=== PATIENT | female | born 1950 | race American Indian/Alaskan Native ===

== ENCOUNTER 2020-03-23 09:20 | Day surgery (SDC) | payer MEDICARE, BC ==
[~2020-03-23] VITALS: Ht 167.6 cm; Wt 88.0 kg
[2020-03-23 11:16] VITALS: BP 135/73
[2020-03-23 11:21] VITALS: BP 135/73
[2020-03-23] MEDS ORDERED: SIMV-42 PO (12:02)
[2020-03-23] MEDS ORDERED: AMPH15TA2 PO (12:02)
[2020-03-23] MEDS ORDERED: BENA1TAB79 (12:05)
[2020-03-23] MEDS ORDERED: AMLO-94 PO (12:06)
[2020-03-23] MEDS ORDERED: THYR48.7 (12:08)
[2020-03-23] MEDS ORDERED: INSU100I31 (12:10)
== END 2020-03-23 12:00 | disposition home or self-care (01) ==
LOC: MED 3N 09:20 → U 09:20
PROVIDERS: ATTEND Internal Medicine
DX: Z45.2 Encounter for adjustment and management of vascular access device (principal)
CPT/HCPCS: 36573; 76937

== ENCOUNTER 2020-06-21 10:44 | Day surgery (SDC) | payer MEDICARE, BC ==
[2020-06-21] VITALS (12 sets, daily range): BP systolic 115–153; BP diastolic 56–80
[~2020-06-21] VITALS: Ht 167.6 cm; Wt 92.6 kg
[~2020-06-21 10:44] MED LIST: AMLO-94 PO; AMPH15TA2 PO; BENA1TAB79; INSU100I31; SIMV-42 PO; THYR48.7
[2020-06-21] MEDS ORDERED: normal saline 1,000 ML IV SCH (11:05)
[2020-06-21] MEDS ORDERED: MESSAGE TO PHARMACY PO ONE (11:05)
[2020-06-21] MEDS ORDERED: nitroGLYCERIN 0.4mg SUBLingual tab SL PRN ×2 (11:05→13:50)
[2020-06-21] MEDS ORDERED: glucagon, human recombinant 1mg kit SUBCUT PRN (11:05)
[2020-06-21] MEDS ORDERED: LORazepam 0.5 MG tablet PO PRN (11:05)
[2020-06-21] MEDS ORDERED: dextrose ORAL solution 15 GM/59 ML bottle PO PRN ×2 (11:05)
[2020-06-21] MEDS ORDERED: dextrose 50%-water 50ml dispensing syringe IV PRN ×2 (11:05)
[2020-06-21] MEDS ORDERED: insulin Lispro (HumaLOG) vial - multi-dose SQ SCH (11:05)
[2020-06-21] MEDS ORDERED: diphenhydrAMINE 25mg capsule PO PRN (11:05)
[2020-06-21] MEDS ORDERED: GLUC100017 (11:38)
[2020-06-21] MEDS ORDERED: AMLO5TAB4 PO (11:38)
[2020-06-21] MEDS ORDERED: turmeric (11:38)
[2020-06-21] MEDS ORDERED: OMEG-166 PO (11:38)
[2020-06-21] MEDS ORDERED: EZET10TA6 PO (11:38)
[2020-06-21] MEDS ORDERED: ESCI20TA PO (11:38)
[2020-06-21] MEDS ORDERED: ZOLP5TAB8 PO (11:38)
[2020-06-21] MEDS ORDERED: CHOL10008 PO (11:38)
[2020-06-21] MEDS ORDERED: THYR65TA6 PO (11:38)
[2020-06-21] MEDS ORDERED: ASCO-157 PO (11:38)
[2020-06-21] MEDS ORDERED: vitamin b6 (11:38)
[2020-06-21] MEDS ORDERED: BENA40TA73 PO (11:38)
[2020-06-21] MEDS ORDERED: calcium, mag, zinc (11:38)
[2020-06-21] MEDS ORDERED: BIOT5000 PO (11:38)
[2020-06-21] MEDS ORDERED: GLYB2.5T4 PO (11:38)
[2020-06-21] MEDS ORDERED: cinnamon PO (11:38)
[2020-06-21] MEDS ORDERED: [UNRECOGNIZED DRUG - OTHER] (11:38)
[2020-06-21] MEDS ORDERED: iohexol 350MG/ML 100ml bottle IV ONE (12:23)
[2020-06-21] MEDS ORDERED: fentaNYL/PF 50MCG/1 ML 2ML syringe ONE (12:23)
[2020-06-21] MEDS ORDERED: midazolam 2 mg/2 ml injection ONE (12:23)
[2020-06-21] MEDS ORDERED: iohexol 350 MG/ML 50ML vial IV ONE (12:23)
[2020-06-21] MEDS ORDERED: LIDOcaine 1% (10mg/ml)w/preservative injection 20ml MDV ONE (12:23)
[2020-06-21] MEDS ORDERED: normal saline 1000ml 1,000 ML IV ONE (13:50)
[2020-06-21] MEDS ORDERED: ondansetron/PF 4mg/2ml inj IV PRN (13:50)
[2020-06-21] MEDS ORDERED: proCHLORperazine 10 MG/2 ml inj IV PRN (13:50)
[2020-06-21] MEDS ORDERED: OXAZEpam 15mg capsule PO PRN (13:50)
[2020-06-21] MEDS ORDERED: HYDROcodone/acetaminophen 5mg/325mg tablet PO PRN (13:55)
[2020-06-21] MEDS ORDERED: insulin glargine (Lantus) pen - multi-dose SQ SCH (21:00)
== END 2020-06-21 20:00 | disposition home or self-care (01) ==
LOC: SSTAY O 10:44
PROVIDERS: ATTEND Internal Medicine Cardiovascular Disease
DX: R94.39 Abnormal result of other cardiovascular function study (principal); I25.10 Atherosclerotic heart disease of native coronary artery without angina pectoris; E78.5 Hyperlipidemia, unspecified; I10 Essential (primary) hypertension; J44.9 Chronic obstructive pulmonary disease, unspecified; E11.9 Type 2 diabetes mellitus without complications; Z98.890 Other specified postprocedural states; Z88.8 Allergy status to other drugs, medicaments and biological substances; Z91.09 Other allergy status, other than to drugs and biological substances; Z98.84 Bariatric surgery status; Z87.891 Personal history of nicotine dependence; Z79.899 Other long term (current) drug therapy
CPT/HCPCS: 82948; 93005; 93458; 99152; 99153; C1760; C1769; J1644; J2001; J2250; J3010; J7030; Q0163; Q9967; A4620